=== PATIENT | female | born 1950 | race Caucasian/White ===

== ENCOUNTER 2018-08-13 12:06 | Outpatient (REF) | payer MEDICARE, BC, SELFPAY ==
[2018-08-13 19:24] LABS: Anion Gap 6.4 mmol/L (3-11); BUN 13 mg/dL (7-18); CO2 30.6 mmol/L (21.0-32.0); CREATININE 0.68 mg/dL (0.55-1.02); Chloride 101 mmol/L (98-107); Glucose 54 mg/dL (70-100); Potassium 4.8 mmol/L (3.5-5.1); Sodium 138 mmol/L (136-145); TSH 1.61 uIU/mL (0.358-3.74)
== END 2018-08-13 12:26 ==
LOC: NCHCN 12:06
PROVIDERS: PCP Internal Medicine; Visit Provider Internal Medicine
DX: I10 Essential (primary) hypertension (principal); J45.20 Mild intermittent asthma, uncomplicated
CPT/HCPCS: 80048; 84443

== ENCOUNTER 2019-08-14 12:40 | Outpatient (REF) | payer MEDICARE, BC, SELFPAY ==
[2019-08-14 20:38] LABS: HCT 45.7 % (36.0-46.0); Mean Corp. HGB Concentration 32.8 g/dL (32.0-36.0); Mean Corpuscular Hemoglobin 29.8 pg (27.0-33.0); Mean Corpuscular Volume 90.7 fL (80-95); Mean Platelet Volume 11.1 fL (8.0-11.0); Platelet Count 241 x1000/uL (130-400); RBC 5.04 m/cumm (4.00-5.20); RBC Distribution Width 12.4 % (11.7-14.6); White Blood Cell Count 5.15 k/cumm (4.4-10.8)
[2019-08-14 20:59] LABS: ALT 25 U/L (14-59); AST 16 U/L (15-37); Albumin 4.4 g/dL (3.4-5.0); Alkaline Phosphatase 71 U/L (46-116); Anion Gap 8.4 mmol/L (3-11); BUN 14 mg/dL (7-18); Bilirubin, Total 0.4 mg/dL (0.2-1.0); CO2 31.6 mmol/L (21.0-32.0); CREATININE 0.76 mg/dL (0.55-1.02); Calcium 8.9 mg/dL (8.5-10.1); Chloride 101 mmol/L (98-107); Glucose 81 mg/dL (70-100); LDL CHOLESTEROL 137 mg/dL (<100); Potassium 4.6 mmol/L (3.5-5.1); Sodium 141 mmol/L (136-145); TSH 1.76 uIU/mL (0.36-3.74); Total Protein 7.4 g/dL (6.4-8.2)
== END 2019-08-14 13:00 ==
LOC: NCHCO 12:40
PROVIDERS: PCP Internal Medicine; Visit Provider Internal Medicine
DX: Z00.00 Encounter for general adult medical examination without abnormal findings (principal); M75.41 Impingement syndrome of right shoulder; I10 Essential (primary) hypertension
CPT/HCPCS: 80053; 83721; 85027; 84443

== ENCOUNTER 2020-08-26 10:50 | Outpatient (REF) | payer MEDICARE, BC, SELFPAY ==
[2020-08-26 20:33] LABS: HGB 15.7 g/dL (11.2-15.7); MCH 30.1 pg (27.0-33.0); MCHC 32.7 % (32.0-36.0); MCV 92.1 fL (80-95); MPV 11.2 fL (8.0-11.0); Platelet Count 240 10^3/uL (130-400); RBC 5.21 10^6/uL (3.93-5.22); RDW 11.9 % (11.7-14.6); RDW-SD 40.4 fL; WBC 4.99 10^3/uL (4.4-10.8)
[2020-08-26 20:53] LABS: BUN 16 mg/dL (7-18); Calcium 8.6 mg/dL (8.5-10.1); Calculated LDL 144 mg/dL (<100); Chloride 104 mmol/L (98-107); Cholesterol 241 mg/dL (<200); Glucose 81 mg/dL (74-106); HDL Cholesterol 82 mg/dL (40-60); Potassium 4.1 mmol/L (3.5-5.1); Sodium 139 mmol/L (136-145); TSH 2.55 uIU/mL (0.36-3.74); Triglyceride 77 mg/dL (<150)
== END 2020-08-26 11:10 ==
LOC: NCHCN 10:50
PROVIDERS: PCP Internal Medicine; Visit Provider Internal Medicine
DX: I10 Essential (primary) hypertension (principal); M85.88 Other specified disorders of bone density and structure, other site
CPT/HCPCS: 80048; 80061; 85027; 84443

== ENCOUNTER 2023-10-18 18:20 | Outpatient (REF) | payer MEDICARE, BC, SELFPAY | END 2023-10-18 18:21 | disposition home or self-care (01) | LOC: NCHCN 18:20 | PROVIDERS: PCP Internal Medicine; Visit Provider Internal Medicine | DX: Z00.00 Encounter for general adult medical examination without abnormal findings (principal) | CPT/HCPCS: 87086 ==